=== PATIENT | male | born 1980 | race Caucasian/White ===

== ENCOUNTER → 2016-07-31 | Outpatient (CLI) | payer SELFPAY ==
[~2016-07-31] MED LIST: MAALOX DPS30 ML PO; SURFAK DPS240 MG PO; TYLENOL DPS325 MG PO
== END | disposition home or self-care (01) ==
LOC: RAD.S 10:05
DX: C7A.8 Other malignant neuroendocrine tumors (principal)

== ENCOUNTER → 2016-10-24 | Outpatient (CLI) | payer SELFPAY | END | disposition home or self-care (01) | LOC: RAD.S 09:07 → PTH.S 09:15 | DX: C7A.8 Other malignant neuroendocrine tumors (principal); R22.2 Localized swelling, mass and lump, trunk ==